=== PATIENT | male | born 1955 ===

== ENCOUNTER 2018-06-01 07:05 | Day surgery (SDC) | payer MEDICARE, MEDICAID ==
--- NOTE | 2018-06-01 09:29 | CP.SDSHP ---
Same Day Surgery H & P - History Proposed Procedure: colonoscopy Pre-Op Diagnosis: screening for colon cancer - Previous Medical/Surgical History Cardiac: Hypertension, Other (hyperlipidemia, PUD) Previous Surgical History: Ulcer surgery 1989 - Allergies Allergies: Allergies No Known Allergies Allergy (Verified 05/28/18 13:47) - Physical Exam Vital Signs: Vital Signs 06/01/18 08:13 Temperature 97.8 F Pulse Rate 62 Respiratory 20 Rate Blood Pressure 155/75 H O2 Sat by Pulse 99 Oximetry Mental Status: Alert & Oriented x3 Neuro: WNL Heart: WNL Lungs: WNL GI: WNL - Impression Impression: screening for colon cancer Pt. Evaluated Today:Candidate for Anesthesia & Procedure: Yes - Date & Time Date: 06/01/18 Time: 09:29 Short Stay Discharge - Short Stay Discharge Admitting Diagnosis/Reason for Visit: ENCOUNTER FOR SCREENING Disposition: HOME/ ROUTINE
[2018-06-01] MEDS ORDERED: Propofol 10 mg/ml Inj (20 ML) ONE ×2 (09:39)
[2018-06-01 10:54] VITALS: TEMP 98.5; O2SAT 100
[2018-06-01 10:58] VITALS: BP 149/85; PULSE 59; RESP 12
== END 2018-06-01 10:58 | disposition home or self-care (01) ==
LOC: C.ENDO 07:05
PROVIDERS: ATTEND Internal Medicine Gastroenterology
DX: Z12.11 Encounter for screening for malignant neoplasm of colon (principal); K64.8 Other hemorrhoids
CPT/HCPCS: 45378; J2704